=== PATIENT | female | born 1935 | race Asian ===

== ENCOUNTER → 2016-09-15 | Outpatient (CLI) | payer MEDICARE | END | disposition home or self-care (01) | LOC: CVU 12:19 | PROVIDERS: ATTEND Internal Medicine | DX: I70.203 Unspecified atherosclerosis of native arteries of extremities, bilateral legs (principal); I10 Essential (primary) hypertension; E11.9 Type 2 diabetes mellitus without complications | CPT/HCPCS: 93922; 93925; 93978 ==

== ENCOUNTER → 2017-09-19 | Outpatient (CLI) | payer MEDICARE | END | disposition home or self-care (01) | LOC: CFH 10:47 | PROVIDERS: ATTEND Internal Medicine | DX: Z13.820 Encounter for screening for osteoporosis (principal); M85.88 Other specified disorders of bone density and structure, other site; M81.0 Age-related osteoporosis without current pathological fracture; N95.9 Unspecified menopausal and perimenopausal disorder | CPT/HCPCS: 77080 ==

== ENCOUNTER → 2018-11-12 | Outpatient (CLI) | payer MEDICARE | END | disposition home or self-care (01) | LOC: RAD 15:14 | PROVIDERS: ATTEND Nurse Practitioner Family | DX: M25.552 Pain in left hip (principal); M62.838 Other muscle spasm; R26.9 Unspecified abnormalities of gait and mobility | CPT/HCPCS: 73523 ==

== ENCOUNTER 2018-11-20 09:34 | Outpatient (CLI) | payer MEDICARE | END 2018-11-20 23:59 | disposition home or self-care (01) | LOC: CFH 09:34 | PROVIDERS: ATTEND Internal Medicine | DX: M17.12 Unilateral primary osteoarthritis, left knee (principal) ==

== ENCOUNTER → 2019-04-11 | Outpatient (CLI) | payer MEDICARE | END | disposition home or self-care (01) | LOC: EDSTATUS 07:30 → CFH 07:59 | PROVIDERS: ATTEND Internal Medicine Nephrology | DX: I12.9 Hypertensive chronic kidney disease with stage 1 through stage 4 chronic kidney disease, or unspecified chronic kidney disease (principal); E11.22 Type 2 diabetes mellitus with diabetic chronic kidney disease; N18.3 Chronic kidney disease, stage 3 (moderate); D64.9 Anemia, unspecified; M10.9 Gout, unspecified; E55.9 Vitamin D deficiency, unspecified; E87.2 Acidosis; R60.9 Edema, unspecified; R80.9 Proteinuria, unspecified | CPT/HCPCS: 76770 ==

== ENCOUNTER 2020-09-24 07:21 | Outpatient (CLI) | payer MEDICARE, MEDICAID ==
[2020-09-24] MEDS ORDERED: REGADENOSON 0.4 MG/5 ML SYRINGE ONE (07:26)
== END 2020-09-25 23:59 | disposition home or self-care (01) ==
LOC: CVU 07:21
PROVIDERS: ATTEND Internal Medicine Cardiovascular Disease
DX: I08.3 Combined rheumatic disorders of mitral, aortic and tricuspid valves (principal); I11.0 Hypertensive heart disease with heart failure; I50.9 Heart failure, unspecified
CPT/HCPCS: 78452; 93017; A9502; C8929; J2785; Q9957

== ENCOUNTER 2020-09-24 09:00 | Outpatient (CLI) | payer MEDICARE, MEDICAID | END 2020-09-24 23:59 | disposition home or self-care (01) | LOC: CFH 09:00 | PROVIDERS: ATTEND Internal Medicine | DX: Z02.9 Encounter for administrative examinations, unspecified (principal) ==